=== PATIENT | female | born 1975 | race Caucasian/White ===

== ENCOUNTER 2016-07-02 08:15 | Emergency (ER) | payer BC ==
[2016-07-02 08:28] VITALS: BP 101/69
--- NOTE | 2016-07-02 09:50 | UC ---
Respiratory Complaint HPI - HPI Summary HPI Summary: 1 WEEK OF DRY COUGH AND CONGESTION. NO FEVER, N/V/D. ALSO HAS SOME JAW PAIN AND PAIN IN HER MOLARS - WORSE IN THE MORNING WHEN SHE WAKES UP. HAS BEEN WEARING A MOUTH GUARD WHICH IS NOT HELPING. - History of Current Complaint Chief Complaint: UCRespiratory Stated Complaint: RESP ISSUE Time Seen by Provider: 07/02/16 09:49 Hx Obtained From: Patient Hx Last Menstrual Period: appox 3 weeks ago Onset/Duration: Gradual Onset, Lasting Days, Still Present Timing: Constant Severity Initially: Mild Severity Currently: Mild Pain Intensity: 2 Pain Scale Used: 0-10 Numeric Character: Cough: Nonproductive Aggravating Factors: Nothing Alleviating Factors: Nothing Associated Signs And Symptoms: Positive: URI, Nasal Congestion. Negative: Fever , Wheezing - Allergies/Home Medications Allergies/Adverse Reactions: Allergies Allergy/AdvReac Type Severity Reaction Status Date / Time Cephalexin Allergy Hives Verified 07/02/16 08:21 Home Medications: Home Medications NK [No Home Medications Reported] 07/02/16 [History Confirmed 07/02/16] PMH/Surg Hx/FS Hx/Imm Hx Previously Healthy: Yes - Surgical History Surgical History: Yes Surgery Procedure, Year, and Place: , - Family History Known Family History: Positive: Hypertension - Social History Alcohol Use: Rare Substance Use Type: None Smoking Status (MU): Never Smoked Tobacco Review of Systems Constitutional: Negative ENT: Dental Pain, Nasal Discharge Respiratory: Cough Cardiovascular: Negative Gastrointestinal: Negative All Other Systems Reviewed And Are Negative: Yes Physical Exam Triage Information Reviewed: Yes Appearance: Well-Appearing, No Pain Distress, Well-Nourished Vital Signs: Initial Vital Signs Temp 98.8 F 07/02/16 08:22 Pulse 71 07/02/16 08:22 Resp 18 07/02/16 08:22 BP 101/69 07/02/16 08:22 Pulse Ox 97 07/02/16 08:22 Vital Signs Reviewed: Yes Eyes: Positive: Conjunctiva Clear ENT: Positive: Hearing grossly normal Dental: Positive: Gross Decay/Caries @ Neck: Positive: Supple, Nontender, No Lymphadenopathy Respiratory Exam: Normal Cardiovascular Exam: Normal Abdomen Description: Positive: Soft Musculoskeletal: Positive: No Edema Neurological: Positive: Alert Psychological: Positive: Age Appropriate Behavior Skin: Negative: rashes UC Diagnostic Evaluation - Laboratory O2 Sat by Pulse Oximetry: 97 Respiratory Course/Dx - Differential Dx/Diagnosis Provider Diagnoses: 1. ACUTE URI. 2. JAW PAIN, NOS Discharge - Discharge Plan Condition: Stable Disposition: HOME Patient Education Materials: Upper Respiratory Infection (ED) Referrals: [facility] [Provider Group] - If Needed Additional Instructions: YOUR JAW/TEETH PAIN SOUNDS LIKE A SEPARATE ISSUE FROM YOUR RESPIRATORY INFECTION. THE RESPIRATORY INFECTION SHOULD IMPROVE OVER THE NEXT 1-2 WEEKS. CALL YOUR DENTIST TODAY TO SCHEDULE AN APPT FOR AN EVALUATION. CONSIDER TOOTH GRINDING OR TMJ. IBUPROFEN FOR DISCOMFORT.
== END 2016-07-02 10:06 | disposition home or self-care (01) ==
LOC: UCEAST 08:15
DX: J06.9 Acute upper respiratory infection, unspecified (principal); R68.84 Jaw pain; Z88.1 Allergy status to other antibiotic agents
CPT/HCPCS: 99211; G0463

== ENCOUNTER 2016-12-30 08:44 | Emergency (ER) | payer BC ==
[2016-12-30 10:53] VITALS: BP 119/71
--- NOTE | 2017-01-04 22:19 | UC ---
Ja Francois Gabriel, scribed for Mily Madsen MD on 12/30/16 at 1134 . Respiratory Complaint HPI - HPI Summary HPI Summary: This patient is a 41 year old F presenting to [facility] [place] [facility] started having what she thought was having an allergic response to dust over a week ago. Pt took allergy medicine with some relief but currently antihistamines are not alleviating all symptoms and recently a cough arose. Pt also reports rhinorrhea. No sob / cp / palpitations. No GI issues reported. No sob except with cough. - History of Current Complaint Chief Complaint: UCRespiratory Stated Complaint: COUGH Time Seen by Provider: 12/30/16 11:14 Hx Obtained From: Patient Hx Last Menstrual Period: 12/01/16 Onset/Duration: Lasting Weeks - 1, Still Present Timing: Constant Character: Cough: Nonproductive Aggravating Factors: Allergens - Allergies/Home Medications Allergies/Adverse Reactions: Allergies Allergy/AdvReac Type Severity Reaction Status Date / Time Cephalexin Allergy Hives Verified 12/30/16 09:01 Home Medications: Home Medications Cetirizine* [ZyrTEC 10 MG TAB*] 10 mg PO DAILY 12/30/16 [History Confirmed 12/30] Guaifenesin [Tussin Adult] 100 mg PO 12/30/16 [History] PMH/Surg Hx/FS Hx/Imm Hx Previously Healthy: Yes - Surgical History Surgical History: Yes Surgery Procedure, Year, and Place: -2007, - Family History Known Family History: Positive: Hypertension - Social History Alcohol Use: Occasionally Substance Use Type: None Smoking Status (MU): Never Smoked Tobacco Review of Systems Constitutional: Negative Skin: Negative Eyes: Negative ENT: Other - see hpi Respiratory: Other - see HPI Cardiovascular: Negative Gastrointestinal: Negative Genitourinary: Negative Motor: Negative Neurovascular: Negative Musculoskeletal: Negative Neurological: Negative Psychological: Negative Is Patient Immunocompromised?: No All Other Systems Reviewed And Are Negative: Yes Physical Exam Triage Information Reviewed: Yes Appearance: Well-Nourished - NAD Vital Signs: Initial Vital Signs Temp 98.7 F 12/30/16 08:57 Pulse 81 12/30/16 08:57 Resp 18 12/30/16 08:57 BP 123/66 12/30/16 08:57 Pulse Ox 99 12/30/16 08:57 Vital Signs Reviewed: Yes Eye Exam: Normal ENT: Positive: TM dull - right, Left normal, Other - uvula midline, slightly edematous, airway patent. Neck exam: Normal Neck: Positive: Supple, Nontender Respiratory Exam: Other - bs equal. No rtx. scattered exp wheeze bilat. + rhonchorus cough Respiratory: Positive: Wheezing Cardiovascular Exam: Normal - good general skin color, good capillary refill Cardiovascular: Positive: RRR, No Murmur Abdominal Exam: Normal Abdomen Description: Positive: Nontender, No Organomegaly, Soft Bowel Sounds: Positive: Present Musculoskeletal Exam: Normal Musculoskeletal: Positive: Strength Intact Neurological Exam: Normal - nonfocal, grossly intact Psychological Exam: Normal - conversing easily and appropriately Skin Exam: Normal - no visible or reported rash UC Diagnostic Evaluation - Laboratory O2 Sat by Pulse Oximetry: 97 Respiratory Course/Dx - Course Course Of Treatment: No new problems in CCC. Questions as posed answered to the best of my ability. - Differential Dx/Diagnosis Provider Diagnoses: acute bronchitis. wheezing Discharge - Discharge Plan Condition: Stable Disposition: HOME Prescriptions: Albuterol HFA INHALER* [Ventolin HFA Inhaler*] 1 - 2 puff INH Q4H PRN #1 mdi PRN Reason: Wheezing DOXYcycline CAP(*) [DOXYcycline 100MG CAP(*)] 100 mg PO BID #20 cap Patient Education Materials: Acute Bronchitis (ED), Wheezing (ED) Forms: *Work Release Referrals: No Primary Care Phys,NOPCP [Primary Care Provider] - Additional Instructions: Follow up primary care physician Pelon CARMICHAEL per routine. Seek medical attention for worse or new problems in the meantime. The documentation as recorded by the Ja johnson Gabriel accurately reflects the service I personally performed and the decisions made by me, Mily Madsen MD.
== END 2016-12-30 11:45 | disposition home or self-care (01) ==
LOC: UCEAST 08:44
DX: J20.9 Acute bronchitis, unspecified (principal); Z88.1 Allergy status to other antibiotic agents
CPT/HCPCS: 99212; G0463

== ENCOUNTER 2017-08-31 08:29 | Emergency (ER) | payer BC ==
[2017-08-31 08:48] VITALS: BP 104/55
--- NOTE | 2017-08-31 08:57 | UC ---
Lower Extremity/Ankle HPI - HPI Summary HPI Summary: Pt. is a 42 y/o female presenting to the [facility] with R foot pain for weeks and worsening last week. She thinks it is plantar fasciitis. Denies ankle pain. The pain is worsened by walking barefoot and wearing shoes w/o arch support and is not relieved by icing. Pt. denies falls, recent running and pain when pressure is applied. She notes having walked around a lot for work this week. This is SooYoung alex Sanchez, documenting for attending, Dr. Silas Coppola MD. - History of Current Complaint Chief Complaint: UCLaceration Stated Complaint: FOOT PAIN Time Seen by Provider: 08/31/17 08:48 Hx Obtained From: Patient Hx Last Menstrual Period: 08/01/17 Onset/Duration: Lasting Weeks - Worsened last week, Still Present Severity Currently: Moderate Pain Intensity: 4 Pain Scale Used: 0-10 Numeric Aggravating Factor(s): Ambulation, Other - Wearing shoes w/o arch support. Alleviating Factor(s): Nothing - Allergies/Home Medications Allergies/Adverse Reactions: Allergies Allergy/AdvReac Type Severity Reaction Status Date / Time cephalexin Allergy Hives Verified 08/31/17 08:34 Home Medications: Home Medications Ibuprofen TAB* [Motrin TAB* 400 MG] 400 mg PO Q6H PRN 08/31/17 [History Confirmed 08/31/17] PMH/Surg Hx/FS Hx/Imm Hx - Additional Past Medical History Additional PMH: Neg: Deafness; Blindness Previously Healthy: Yes - Surgical History Surgical History: Yes Surgery Procedure, Year, and Place: , - Family History Known Family History: Positive: Hypertension - Social History Occupation: Employed Full-time Lives: Alone Alcohol Use: Occasionally Substance Use Type: None Smoking Status (MU): Never Smoked Tobacco Review of Systems Constitutional: Other - neg: fever Musculoskeletal: Other: - R foot pain All Other Systems Reviewed And Are Negative: Yes Physical Exam - Summary Physical Exam Summary: General: well-appearing, no pain distress Skin: No erythema and no skin breaks of R foot Head: normal Eyes: EOMI, [place] ENT: normal Neck: supple, nontender Respiratory: CTA, breath sounds present Cardiovascular: RRR Abdomen: soft, nontender Bowel: present Musculoskeletal: tenderness in arch of R foot; no erythema, no skin break, good pulses bilaterally Neurological: sensory/motor intact, A&O x3 Psychological: affect/mood appropriate Triage Information Reviewed: Yes Vital Signs: Initial Vital Signs Temp 99.5 F 08/31/17 08:36 Pulse 61 08/31/17 08:36 Resp 16 08/31/17 08:36 BP 104/55 08/31/17 08:36 Pulse Ox 99 08/31/17 08:36 Vital Signs Reviewed: Yes Lower Extremity Course/Dx - Course Course Of Treatment: Medications and allergies reviewed. WILL TREAT FOR CELLULITIS AND THE POSSIBLITY OF GOUT. F/U PMD; RECHECK SOONER IF WORSE. - Differential Dx/Diagnosis Provider Diagnoses: LEFT FOOT PAIN, ERYTHEMA AND SWELLING Discharge - Sign-Out/Discharge Documenting (check all that apply): Patient Departure - Discharge Plan Condition: Stable Disposition: HOME Patient Education Materials: Plantar Fasciitis (ED), Plantar Fasciitis Exercises (ED) Referrals: [facility] PHYSICIAN REFERRAL [Outside] Additional Instructions: FOLLOW UP WITH YOUR DOCTOR. TAKE IBUPROFEN DIRECTED NEEDED. ICE YOUR FOOT. WEAR ARCH SUPPORTS IN ALL YOUR FOOTWEAR. GET RECHECKED FOR ANY WORSENING OF YOUR CONDITION OR QUESTIONS OR CONCERNS. - Billing Disposition and Condition Condition: STABLE Disposition: Home
== END 2017-08-31 09:05 | disposition home or self-care (01) ==
LOC: UCEAST 08:29
DX: M79.672 Pain in left foot (principal); L53.9 Erythematous condition, unspecified; M79.89 Other specified soft tissue disorders; Z88.1 Allergy status to other antibiotic agents
CPT/HCPCS: 99211; G0463